=== PATIENT | female | born 1965 | race Caucasian/White ===

== ENCOUNTER 2020-10-04 07:52 | Emergency (ER) | payer BC, SELFPAY ==
[2020-10-04] VITALS (12 sets, daily range): BP systolic 149–177; BP diastolic 67–97; PULSE 66–79; RESP 14–31; TEMP 36.7; O2SAT 92–99
--- NOTE | 2020-10-04 08:07 | DI.RAD.S_ITS ---
PROCEDURE: XR TOE RT MIN 2V INDICATIONS: hit right 5th toe, bruising at base w/ pain TECHNIQUE: 3 views of the 5th toe(s) acquired. COMPARISON: None. FINDINGS: Bones: Oblique fracture through the 5th digit proximal phalanx. There is no significant displacement. There is possible intra-articular extension. No dislocations. No suspicious bony lesions. Soft tissues: No suspicious soft tissue densities. IMPRESSION: Oblique fracture through the 5th digit proximal phalanx. Dictated by: Luis Martínez M.D. on 10/04/2020 at 8:53 Approved by: Luis Martínez M.D. on 10/04/2020 at 9:08
--- NOTE | 2020-10-04 08:07 | DI.RAD.S_ITS ---
PROCEDURE: XR CHEST 1V INDICATIONS: chest pain TECHNIQUE: One view of the chest was acquired. COMPARISON: None. FINDINGS: Surgical changes and devices: None. Lungs and pleura: Lungs are clear. No pleural effusions or pneumothorax. Lungs are hyperexpanded. Mediastinum: Mediastinal contours appear normal. Heart size is normal. Bones and chest wall: No suspicious bony lesions. Overlying soft tissues appear unremarkable. IMPRESSION: No acute pulmonary process. Dictated by: Ni Moreira M.D. on 10/04/2020 at 8:33 Approved by: Ni Moreira M.D. on 10/04/2020 at 8:41
--- NOTE | 2020-10-04 08:09 | ED.CHESTPAIN ---
HPI - Chest Pain General Chief Complaint: Chest Pain Stated Complaint: chest pain since yesterday, worse this AM Time Seen by Provider: 10/04/20 08:08 Source: patient Mode of arrival: Ambulatory Limitations: no limitations History of Present Illness HPI narrative: This is a 55-year-old female who comes emergency department with complaint of chest pain. Patient states she has had costochondritis in the past. That has been quite painful but states this feels different today. She describes it is substernal little bit to the right and also epigastric region. Was shooting pains yesterday and then a tightness last night with some pressure that was present throughout the entire night. Patient woke up this morning at 5:00 a.m. the like is a little bit worse and radiating towards her back. Patient denies any fevers or chills, no cold cough or congestion. She has had some mild nausea but no vomiting. No diaphoresis. No shortness of breath, no pleuritic chest pain. Swelling in her extremities. No issues with bowel movements or urination. Nothing seems to exacerbate it. She states it has been steady, at this time it is a 1/2 out of 10. She does have a history of migraines which she takes amitriptyline for, Mepron well as well as uses an estradiol patch. She had a total hysterectomy, rectal and cystocele repair with mesh as well as hernia repair with mesh in the past. She has allergies which are dystonic reactions to Reglan and Compazine. No tobacco, 1 alcoholic drink weekly, CBD oil but no other illicit. Primary care is Dr. Thomas in [facility]. Patient states a couple months ago she was told that there was a change on her EKG but she is not sure what it was from a prior. Patient also notes that she has some pain, bruising and pain over the 5th digit of her right toe after jamming her foot last against a piece of furniture. She states the pain has not improved and is still uncomfortable to ambulate. No new numbness or tingling. Related Data Home Medications Medication Instructions Recorded Confirmed amitriptyline 25 mg tablet 25 mg PO BEDTIME 10/04/20 10/04/20 estradiol 0.05 mg/24 hr semiweekly 1 patch TRANSDERMAL 2XW 07/12/21 07/12/21 transdermal patch omeprazole 20 mg capsule,delayed 20 mg PO QAM 10/04/20 10/04/20 release rizatriptan 10 mg disintegrating 10 mg PO ONCE PRN 10/04/20 10/04/20 tablet (Maxalt-E [employer]) Allergies Allergy/AdvReac Type Severity Reaction Status Date / Time No Known Drug Allergies Allergy Verified 10/04/20 08:19 Review of Systems Review of Systems ROS Unobtainable: All systems reviewed & are unremarkable except as noted in HPI and below Patient History Medical History (Updated 10/04/20 @ 10:00 by Karly Mckeon DO) Migraine Social History Smoking Status: Never smoker Exam Narrative Exam Narrative: GENERAL: Alert and oriented x three, female in mild distress. HEENT: Head normocephalic, atraumatic, EOMI, pupils reactive, face symmetric, moist mucous membranes NECK: Supple, full range of motion CARDIOVASCULAR: Regular rate and rhythm without murmurs, rubs or gallops. No swelling bilateral lower extremities. No JVD. RESPIRATORY: Breath sounds equal bilaterally, no wheezes rales or rhonchi. No tachypnea accessory muscle use. ABDOMEN: Soft, nontender. Normoactive bowel sounds all 4 quadrants. No guarding or rebound, rigidity, no mass : No CVA tenderness EXTREMITIES: Normal range of motion, no clubbing. Patient has ecchymosis over the 5th distal metatarsal and digit as well as mild ecchymosis over the 4th digit of her right foot. She has tenderness over the proximal interphalangeal joint. Increased pain with movement. Patient does not have any obvious deformity. Cap refill is less than 2 seconds in all 5 toes with 2+ dorsalis pedis and normal sensation throughout. Neurovascularly intact NEUROLOGICAL: Cranial nerves II through XII grossly intact. Moving all extremities SKIN: Warm, dry, no petechiae, no rashes or lesions, otherwise noted above. Initial Vital Signs Initial Vital Signs: Vital Signs Temperature 98.1 F 10/04/20 07:55 Pulse Rate 72 10/04/20 07:55 Respiratory Rate 14 10/04/20 07:55 Blood Pressure 177/81 H 10/04/20 07:55 Pulse Oximetry 99 10/04/20 07:55 Scores HEART Score Heart Score history: Slightly Suspicious Heart Score EKG: Normal Heart Score Age: 45-64 years old Heart Score risk factors: No known risk factors Heart Score troponin: < or = to normal limit Heart Score Total: 1 PERC Score Age greater than or equal to 50 years: Yes Heart rate greater than or equal to 100 bpm: No Room Air O2 Sat less than 95%: No Unilateral leg swelling: No Recent trauma or surgery: No (Mild trauma to toe.) Hemoptysis: No Prior PE or DVT: No Hormone Use: Yes Total PERC Score: 2 Course Orders Ordered: Discontinued Medications Aspirin (Aspirin 81 Mg Chew Tab) 324 mg PO NOW ONE Stop: 10/04/20 08:08 Last Admin: 10/04/20 09:47 Dose: 324 mg Documented by: ALMA Vital Signs Vital signs: Vital Signs - 8 hr 10/04/20 11:00 10/04/20 11:51 Pulse Rate 67 73 Respiratory Rate 16 18 Blood Pressure 153/70 H 153/70 H Pulse Oximetry 99 99 MDM - Chest Pain Lab Data Result diagrams: 10/04/20 08:10 10/04/20 08:10 Labs: Lab Results 10/04/20 10/04/20 10/04/20 Range/Units 08:10 08:10 08:10 WBC 6.4 (4.5-11.0) X10^3/uL RBC 5.02 (4.0-5.2) X10^6/uL Hgb 15.0 (12.0-16.0) g/dL Hct 43.7 (36-46) % MCV 87.0 (80-100) fL MCH 29.9 (26-34) PG MCHC 34.3 (30-36) % RDW 12.1 (11.6-14.8) % Plt Count 283 (150-400) X10^3/uL Neut % (Auto) 64.9 (50-75) % Lymph % (Auto) 25.2 (25-40) % [place]ackelford % (Auto) 7.4 (3-14) % Eos % (Auto) 1.7 L (2-4) % Baso % (Auto) 0.8 (0-2) % Neut # (Auto) 4100 (2822-0187) /uL Lymph # (Auto) 1600 (6529-6950) /uL [place] # (Auto) 500 (0-900) /uL Eos # (Auto) 100 (0-450) /uL Baso # (Auto) 0 (0-100) /uL D-Dimer (<230) ng/mL Sodium 137 (137-145) mmol/L Potassium 3.8 (3.4-5.1) mmol/L Chloride 103 (98-107) mmol/L Carbon Dioxide 27 (22-32) mmol/L BUN 14 (7-17) mg/dL Creatinine 0.57 (0.52-1.04) mg/dL Estimated GFR > 60.0 (>60) mL/min BUN/Creatinine Ratio 24.6 H (6-22) Glucose 108 H (70-100) mg/dL Calcium 9.9 (8.4-10.2) mg/dL Magnesium 1.9 (1.6-2.3) mg/dL Total Bilirubin 2.2 H (0.2-1.3) mg/dL AST 27 (14-36) IU/L ALT 21 (<35) IU/L Alkaline Phosphatase 75 (38-126) U/L Total Creatine Kinase 49 (30-135) U/L CK-MB (CK-2) TNP CK-MB (CK-2) Rel Index TNP Troponin I < 0.012 (0.01-0.034) ng/mL Total Protein 7.6 (6.3-8.2) g/dL Albumin 4.5 (3.5-5.0) g/dL Globulin 3.1 (1.7-4.1) g/dL Albumin/Globulin Ratio 1.5 (1.0-2.8) Lipase 159 (23-300) U/L TSH 3.14 (0.47-4.68) uIU/mL 10/04/20 Range/Units 08:40 WBC (4.5-11.0) X10^3/uL RBC (4.0-5.2) X10^6/uL Hgb (12.0-16.0) g/dL Hct (36-46) % MCV (80-100) fL MCH (26-34) PG MCHC (30-36) % RDW (11.6-14.8) % Plt Count (150-400) X10^3/uL Neut % (Auto) (50-75) % Lymph % (Auto) (25-40) % Shackelford % (Auto) (3-14) % Eos % (Auto) (2-4) % Baso % (Auto) (0-2) % Neut # (Auto) (4946-0456) /uL Lymph # (Auto) (9838-4983) /uL Shackelford # (Auto) (0-900) /uL Eos # (Auto) (0-450) /uL Baso # (Auto) (0-100) /uL D-Dimer 205 (<230) ng/mL Sodium (137-145) mmol/L Potassium (3.4-5.1) mmol/L Chloride (98-107) mmol/L Carbon Dioxide (22-32) mmol/L BUN (7-17) mg/dL Creatinine (0.52-1.04) mg/dL Estimated GFR (>60) mL/min BUN/Creatinine Ratio (6-22) Glucose (70-100) mg/dL Calcium (8.4-10.2) mg/dL Magnesium (1.6-2.3) mg/dL Total Bilirubin (0.2-1.3) mg/dL AST (14-36) IU/L ALT (<35) IU/L Alkaline Phosphatase (38-126) U/L Total Creatine Kinase (30-135) U/L CK-MB (CK-2) CK-MB (CK-2) Rel Index Troponin I (0.01-0.034) ng/mL Total Protein (6.3-8.2) g/dL Albumin (3.5-5.0) g/dL Globulin (1.7-4.1) g/dL Albumin/Globulin Ratio (1.0-2.8) Lipase (23-300) U/L TSH (0.47-4.68) uIU/mL Imaging Data Chest x-ray: Radiologist's Impression: Mahsa Molinasarita Whiteside 55 F 1965 [address] [id number] ReportSigned Patient: Rosa Molina RMR#: [id number]: 1965Acct:[id number]/Sex: 55 / FDate of Service: 10/04/20Loc: EDAccession Number: [id number] Procedure: XR chest 1V Ordering Provider: Karly Mckeon D.O. PROCEDURE: XR CHEST 1V INDICATIONS: chest pain TECHNIQUE: One view of the chest was acquired. COMPARISON: None. FINDINGS: Surgical changes and devices: None. Lungs and pleura: Lungs are clear. No pleural effusions or pneumothorax. Lungs are hyperexpanded. Mediastinum: Mediastinal contours appear normal. Heart size is normal. Bones and chest wall: No suspicious bony lesions. Overlying soft tissues appear unremarkable. IMPRESSION: No acute pulmonary process. Dictated by: Ni Moreira M.D. on 10/04/2020 at 8:33 Approved by: Ni Moreira M.D. on 10/04/2020 at 8:41 Extremity x-ray #1: Radiologist's Impression: [address] [id number] ReportSigned Patient: Rosa Molina RMR#: [id number]: 1965Acct:[id number]/Sex: 55 / FDate of Service: 10/04/20Loc: EDAccession Number: [id number] Procedure: XR toe RT min 2V Ordering Provider: Karly Mckeon D.O. PROCEDURE: XR TOE RT MIN 2V INDICATIONS: hit right 5th toe, bruising at base w/ pain TECHNIQUE: 3 views of the 5th toe(s) acquired. COMPARISON: None. FINDINGS: Bones: Oblique fracture through the 5th digit proximal phalanx. There is no significant displacement. There is possible intra-articular extension. No dislocations. No suspicious bony lesions. Soft tissues: No suspicious soft tissue densities. IMPRESSION: Oblique fracture through the 5th digit proximal phalanx. Dictated by: Luis Martínez M.D. on 10/04/2020 at 8:53 Approved by: Luis Martínez M.D. on 10/04/2020 at 9:08 US - abdomen: Radiologist's Impression: JesseRosa 55 F [address] [id number] ReportSigned Patient: Rosa Molina RMR#: [id number]: 1965Acct:[id number]/Sex: 55 / FDate of Service: 10/04/20Loc: EDAccession Number: [id number] Procedure: US abdomen limited Ordering Provider: Karly Mckeon D.O. PROCEDURE: US ABDOMEN LIMITED INDICATIONS: EPIGASTRIC PAIN; ELEVATED BILIRUBIN TECHNIQUE: Real-time focused scanning was performed of the abdomen, with image documentation. COMPARISON: None. FINDINGS: Liver is normal in size and homogeneous in echotexture. Gallbladder is sonographically normal. No gallstones. No gallbladder wall thickening. Gallbladder wall measures 1.0 millimeters. No pericholecystic fluid. No sonographic Wayne sign. Biliary tree is nondilated. Common bile duct measures 3.8 millimeters. Pancreas is sonographically normal. IMPRESSION: Normal examination without sonographic evidence of cholelithiasis or cholecystitis. If there is continued clinical concern for cholecystitis, a nuclear medicine HIDA scan should be considered for further evaluation. Dictated by: Ally Avalos MD, PhD on 10/04/2020 at 10:46 Approved by: Ally Avalos MD, PhD on 10/04/2020 at 10:47 ECG Data Attestation: I personally reviewed and interpreted this ECG as follows: Prior ECG tracings: available for review Interpretation: Sinus rhythm rate of 60 KS 144 QRS is 74 and QTC 441. No acute ST elevation depression appreciated. Patient prior EKG available from patient's primary care from 07/06/2020 which appears similar to today's. MDM Narrative Medical decision making narrative: 55-year-old female with chest pain last night continued through this morning. Patient has had costochondritis but states feels different. It is 1/2 out of 10. Patient also notes that she has some bruising and hurt on . Patient does have a proximal phalanx fracture and was set up with ortho shoe, referral orthopedic surgery although we discussed she could follow with her primary care as an option as well. Patient was nontender on her abdominal but did have an elevated bilirubin. Abdominal ultrasound was ordered and does not show any acute changes. All questions answered. Patient feels comfortable returning home at this time and plan for follow-up regarding her bilirubin. Discharge Plan Departure Patient Disposition: Home Clinical Impression: Chest pain Closed fracture of toe Qualifiers: Encounter type: initial encounter Phalanx: proximal Fracture alignment: nondisplaced Instructions: DI for Foot Fracture Activity Restrictions/Additional Instructions: Follow-up with your physician in the next 1-2 weeks for recheck. Your x-ray does show a fracture of the proximal 5th phalanx of your foot. You may use Tylenol and/or ibuprofen as needed for pain. Wear a hard shoe or ortho shoe to properly splint your foot. You may weight bear as tolerated. Your labs show an elevated bilirubin. Ultrasound of your upper abdomen shows Splint Care: Keep splint clean and dry. Elevated affected body part to decrease swelling. OK to use ice pack on the affected body part. Use for 15-20 minutes each time, for 5-6x per day. If you develop worsening pain, numbness, tingling, discoloration of the affected body part, wear ortho shoe, and either see your doctor for an urgent re-assessment, or return to the Emergency Department. Return to the Emergency Department for any new or worsening symptoms. Prescriptions: No Action omeprazole 20 mg capsule,delayed release(DR/EC) 20 mg PO QAM RF: 0 estradiol 0.05 mg/24 hr patch semiweekly 1 patch transdermal 2XW RF: 0 amitriptyline 25 mg tablet 25 mg PO BEDTIME RF: 0 rizatriptan [Maxalt-E [employer]] 10 mg tablet,disintegrating 10 mg PO ONCE PRN (Reason: Migraine Headache) RF: 0 Referrals: Niall Tse MD [Physician] -
[2020-10-04 08:21] LABS: Add Manual Diff / Slide Review NO; Basophils Absolute Auto 0 /uL (0-100); Basophils Percent Auto 0.8 % (0-2); Eosinophils Absolute Auto 100 /uL (0-450); Eosinophils Percent Auto 1.7 % (2-4); Hematocrit 43.7 % (36-46); Lymphocytes Absolute Auto 1600 /uL (1100-4500); Lymphocytes Percent Auto 25.2 % (25-40); Mean Corpuscular HGB Conc 34.3 % (30-36); Mean Corpuscular Hemoglobin 29.9 PG (26-34); Monocytes Absolute Auto 500 /uL (0-900); Monocytes Percent Auto 7.4 % (3-14); Neutrophils Absolute Auto 4100 /uL (1500-7000); Neutrophils Percent Auto 64.9 % (50-75); Platelet Count 283 X10^3/uL (150-400); Red Blood Cell Count 5.02 X10^6/uL (4.0-5.2); Red Cell Distribution Width 12.1 % (11.6-14.8); White Blood Cell Count 6.4 X10^3/uL (4.5-11.0)
[2020-10-04 08:28] LABS: Alanine Aminotransferase 21 IU/L (<35); Albumin 4.5 g/dL (3.5-5.0); Albumin Globulin Ratio 1.5 (1.0-2.8); Alkaline Phosphatase 75 U/L (38-126); Aspartate Aminotransferase 27 IU/L (14-36); BUN Creatinine Ratio 24.6 (6-22); Bilirubin Total 2.2 mg/dL (0.2-1.3); Blood Urea Nitrogen 14 mg/dL (7-17); Calcium 9.9 mg/dL (8.4-10.2); Carbon Dioxide 27 mmol/L (22-32); Chloride 103 mmol/L (98-107); Creatine Kinase 49 U/L (30-135); Estimated Glomerular Filt Rate > 60.0 mL/min (>60); Globulin 3.1 g/dL (1.7-4.1); Glucose 108 mg/dL (70-100); HEMOLYSIS 16 (0-50); Lipase 159 U/L (23-300); Magnesium 1.9 mg/dL (1.6-2.3); Potassium 3.8 mmol/L (3.4-5.1); Sodium 137 mmol/L (137-145); Total Protein 7.6 g/dL (6.3-8.2)
[2020-10-04 08:39] LABS: Troponin I < 0.012 ng/mL (0.01-0.034)
[2020-10-04 09:01] LABS: TSH w/ Reflex to FT4 3.14 uIU/mL (0.47-4.68)
[2020-10-04 09:06] LABS: D Dimer 205 ng/mL (<230)
--- NOTE | 2020-10-04 09:32 | DI.US.S_ITS ---
PROCEDURE: US ABDOMEN LIMITED INDICATIONS: EPIGASTRIC PAIN; ELEVATED BILIRUBIN TECHNIQUE: Real-time focused scanning was performed of the abdomen, with image documentation. COMPARISON: None. FINDINGS: Liver is normal in size and homogeneous in echotexture. Gallbladder is sonographically normal. No gallstones. No gallbladder wall thickening. Gallbladder wall measures 1.0 millimeters. No pericholecystic fluid. No sonographic Wayne sign. Biliary tree is nondilated. Common bile duct measures 3.8 millimeters. Pancreas is sonographically normal. IMPRESSION: Normal examination without sonographic evidence of cholelithiasis or cholecystitis. If there is continued clinical concern for cholecystitis, a nuclear medicine HIDA scan should be considered for further evaluation. Dictated by: Ally Avalos MD, PhD on 10/04/2020 at 10:46 Approved by: Ally Avalos MD, PhD on 10/04/2020 at 10:47
[2020-10-04] MEDS: ASPIRIN 81 MG CHEW TAB 324 MG PO (09:47)
== END 2020-10-04 11:51 | disposition home or self-care (01) ==
PROVIDERS: Emergency Provider Emergency Medicine
DX: R07.9 Chest pain, unspecified (principal); S92.514A Nondisplaced fracture of proximal phalanx of right lesser toe(s), initial encounter for closed fracture; R10.13 Epigastric pain; R11.0 Nausea; R79.89 Other specified abnormal findings of blood chemistry; W22.03XA Walked into furniture, initial encounter
CPT/HCPCS: 36415; 71045; 73660; 76705; 80053; 82550; 83690; 83735; 84443; 84484; 85025; 85379; 93005; 93010; 99284

== ENCOUNTER → 2022-01-02 09:51 | Outpatient (CLI) | payer BC, SELFPAY ==
--- NOTE | 2022-01-02 | DI.US.S_ITS ---
PROCEDURE: US ABDOMEN COMPLETE INDICATIONS: ABDOMINAL PAIN TECHNIQUE: Real-time scanning was performed of the abdominal and retroperitoneal organs, with image documentation. COMPARISON: Outside Film, CT, CT ABDOMEN PELVIS WITHOUT CONTRAST, 08/01/2021, 13:30. [facility], US, US ABDOMEN LIMITED, 10/04/2020, 10:28. FINDINGS: Liver: Liver length of 11.3 centimeters. The liver is echogenic. At the posterior right lobe of the liver, there is an ill-defined region of relative hypoechogenicity which measures 5.8 x 3.9 x 3.4 centimeters. The main portal vein is patent with antegrade flow. Gallbladder: No stones, wall thickening, or sonographic Wayne sign. Biliary ducts: Intrahepatic bile ducts are non-dilated. Extrahepatic bile duct caliber measures 4 mm. Normal is 6-7 mm or less in diameter, or 10 mm or less post-cholecystectomy. Pancreas: Visualized portions of the pancreas are sonographically normal. Spleen: Spleen is normal in size and homogeneous in echotexture. Kidneys: Kidneys are normal in size. Right kidney measures 11.4 cm long; left kidney measures 10.9 cm long. No hydronephrosis or nephrolithiasis. Possible solid mass versus prominent parenchymal lobulation at the mid kidney measuring up to 2.5 centimeters. At the mid-inferior kidney, a 6 millimeter echogenic structure is present, potential angiomyolipoma. Aorta: Visualized aorta is normal in caliber at less than 3 cm. Iliacs: Proximal common iliac arteries are normal in caliber at less than 2.5 cm. IVC: Intrahepatic inferior vena cava is patent. Miscellaneous: No free abdominal fluid. IMPRESSION: 1. No cholelithiasis or evidence of acute cholecystitis. 2. The liver is echogenic, a nonspecific finding commonly seen in the setting of steatosis. 3. Ill-defined region of relative hypo-echogenicity at the posterior right lobe of the liver is nonspecific. It could represent a region of fatty sparing or a hepatic mass. 4. The left kidney is lobular in appearance. At the mid kidney, there is a possible prominent lobulation versus solid mass. 5. MRI of the abdomen with and without contrast, liver protocol, is recommended for further evaluation of above findings. Dictated by: Eliot Velásquez M.D. on 01/02/2022 at 14:05 Approved by: Eliot Velásquez M.D. on 01/02/2022 at 14:15
== END ==
PROVIDERS: Referring Provider Internal Medicine Gastroenterology; Visit Provider Internal Medicine Gastroenterology
DX: R10.9 Unspecified abdominal pain (principal)
CPT/HCPCS: 76700

== ENCOUNTER → 2022-02-06 11:07 | Outpatient (CLI) | payer BC, SELFPAY ==
--- NOTE | 2022-02-06 | DI.MRI.S_ITS ---
PROCEDURE: MR ABDOMEN WO/W CON INDICATIONS: other specified diseases of liver TECHNIQUE: Coronal HASTE, axial 2D FLASH in- and [id number]; axial breath-hold T2 FSE. Dynamic axial VIBE during the administration of contrast; post-contrast coronal VIBE or 2D FLASH with fat saturation from the hepatic dome to the iliac crests. Optional diffusion weighted imaging and ADC may be performed. COMPARISON: [facility], US, US ABDOMEN COMPLETE, 01/02/2022, 10:11. FINDINGS: Image quality: Excellent. Lung bases: 3.1 x 2.1 cm homogeneous, unilocular, pleural-based mass with T1 and T2 hyperintensity in the right lateral lung. No enhancement postcontrast. No pleural effusions. Normal heart size without pericardial effusion. Solid organs: The liver is normal in size and signal with a smooth margin. There is a subcentimeter cyst in the right hepatic lobe segment eight. No lesion to correspond to the ultrasound finding (presumably artifactual). Normal enhancement postcontrast. The gallbladder is partially decompressed. No wall thickening or visible stones. No intra or extrahepatic biliary dilatation. The pancreas is normal. No ductal dilatation. Spleen size is normal. A 1.3 cm splenule is seen at the caudal tip. No adrenal masses. Normal size kidneys with symmetric enhancement. Nodes and vessels: No retroperitoneal or mesenteric adenopathy by size criteria. Aorta and inferior vena cava are normal in size. Bowel and peritoneum: Unenhanced bowel loops are normal in caliber. No free fluid. Bones and soft tissues: No ventral hernias. Bone marrow is normal in overall signal. IMPRESSION: 1. Normal liver without suspicious mass as suggested by recent ultrasound. 2. 3.1 cm benign-appearing, pleural-based fatty mass in the right lateral lung suggestive of a hamartoma or lipoma. Consider contrast-enhanced chest CT for full characterization. Dictated by: Bria Garcia M.D. on 02/06/2022 at 14:53 Approved by: Bria Garcia M.D. on 02/06/2022 at 15:04
== END ==
PROVIDERS: PCP Student in an Organized Health Care Education/Training Program; Referring Provider Internal Medicine Gastroenterology; Visit Provider Internal Medicine Gastroenterology
DX: K76.89 Other specified diseases of liver (principal)
CPT/HCPCS: 74183; A9579

== ENCOUNTER → 2022-02-24 11:45 | Outpatient (CLI) | payer BC, SELFPAY ==
[2022-02-24 13:02] LABS: COVID19 -Nasal RAPID Negative (Negative)
== END ==
PROVIDERS: PCP Student in an Organized Health Care Education/Training Program; Visit Provider Surgery
DX: Z20.822 Contact with and (suspected) exposure to COVID-19 (principal); Z01.812 Encounter for preprocedural laboratory examination
CPT/HCPCS: 87635; C9803

== ENCOUNTER 2022-02-27 09:51 | Day surgery (SDC) | payer BC, SELFPAY ==
[2022-02-27] MEDS: LACTATED RINGERS 1,000 ML 42 ML IV (10:03)
[2022-02-27 10:19] VITALS: BP 152/87; PULSE 82; RESP 16; TEMP 36.5; O2SAT 97; BMI 24.0
--- NOTE | 2022-02-27 11:05 | P.HP_ITS ---
History of Present Illness History of Present Illness Date Patient Seen: 02/27/22 Time Patient Seen: 11:05 Chief complaint: DX COLONOSCOPY Narrative: I reviewed my recent office note from November. No further rectal pain. She is using fiber daily and MiraLax every other day. She believes the fibers contributing to some gas. Patient History Medical History Migraine Family & Social History Social History: household members spouse Tobacco & Substance use: Smoking Status Former smoker alcohol intake current alcohol intake frequency 0-2 drinks per day Substance Use Type does not use Meds Home Medications and Allergies Home Medications Medication Instructions Recorded Confirmed Type amitriptyline 25 mg tablet 25 mg PO BEDTIME 10/04/20 02/27/22 History estradiol 0.05 mg/24 hr semiweekly 1 patch transdermal 2XW 10/04/20 02/27/22 History transdermal patch omeprazole 20 mg capsule,delayed 20 mg PO QAM 10/04/20 02/27/22 History release rizatriptan 10 mg disintegrating 10 mg PO ONCE PRN Migraine Headache 10/04/20 02/27/22 History tablet (Maxalt-[employer]) albuterol 90 mcg/actuation aerosol 90 mcg inhalation 1-2XD PRN 02/27/22 02/27/22 History inhaler Shortness Of Breath Allergies Allergy/AdvReac Type Severity Reaction Status Date / Time metoclopramide [From Reglan] Allergy Mild Agitated Verified 02/27/22 10:13 prochlorperazine Allergy Mild Agitated Verified 02/27/22 10:12 [From Compazine] Review of Systems Review of Systems ROS: Yes All systems reviewed with the patient and are negative except as otherwise documented Exam Vital Signs (past 8 hours): - 02/27/22 10:19 Temperature 97.7 F Pulse Rate 82 Respiratory Rate 16 Blood Pressure 152/87 H Pulse Oximetry 97 Oxygen Delivery Method Room Air Oxygen Delivery Method Room Air Const General: cooperative HENMT Head: normal to inspection Eyes General: appearance normal, both eyes and all related structures Neck Neck: normal visual inspection Chest Chest: normal inspection of the chest Resp Effort & Inspection: normal respiratory effort Cardio Rate: regular rate GI Inspection: normal to inspection Skin General: no rashes or lesions noted Neuro General: patient alert and patient awake Extrem General: normal to inspection and no pedal edema Psych Appearance: grossly normal Assessment & Plan Assessment & Plan narrative: 57-year-old female with a personal history of colon polyps. Rectal pain is improved. Bowel habits have improved as well with fiber MiraLax. Updated colonoscopy is pursued today. Time Spent With Patient Critical Care time: I spent a total of [] minutes of critical care time on this patient's care today; this time is exclusive of procedural time.
--- NOTE | 2022-02-27 12:07 | PM.OP.COLON ---
Operative Date/Time/Diagnoses Date of procedure: 02/27/22 Time of procedure: 12:07 Pre-op diagnosis: Rectal pain, abdominal pain, constipation, personal history of colon polyps. Post-op diagnosis: same Procedure & Clinicians Study performed: Colonoscopy Same procedure as scheduled: Yes Indications: Rectal pain, abdominal pain, constipation, personal history of colon polyps. Surgeon: Jose A Mayes Procedure Notes SCOAP/Timeout: Done Procedure in detail: After the risks and benefits were explained, written and verbal informed consent was obtained. The patient was brought into the procedure room and placed into the left lateral decubitus position. Please see nurse mortgage accounting clerk notes for sedation details. Digital rectal examination was accomplished. The scope was introduced into the patient and advanced under direct visualization to the cecum as identified by the appendiceal orifice and ileocecal valve. The scope was slowly withdrawn to carefully examine the mucosa for any defects or lesions. Comprehensive imaging was accomplished throughout the rectum including the dentate line. The colon was decompressed, the scope was then removed from the patient who tolerated the procedure well. Pediatric colonoscope Bowel prep adequate Scope withdrawal time: 8 minutes Sedation minutes: 17 Specimen(s): none sent Complications: none Impression: The patient had a fairly tortuous sigmoid with extensive diverticulosis. No significant polyps mass lesions or inflammatory features identified throughout. Grade 2 internal hemorrhoids were noted. The terminal ileum was interrogated and appeared normal. Endoscopic diagnosis 1. Grade 2 hemorrhoids 2. Diverticulosis Post-procedure Plan for aftercare: 1. Continue fiber based bowel regimen. Perhaps swap out the Metamucil for Citrucel. 2. Repeat colonoscopy 7 years Disposition: PACU
[2022-02-27 12:10] VITALS: BP 120/60; PULSE 78; RESP 16; TEMP 37.1; O2SAT 100
[2022-02-27 12:15] VITALS: BP 124/84; BP 152/70; PULSE 69; PULSE 72; RESP 12; RESP 16; O2SAT 100; O2SAT 99
[2022-02-27 12:25] VITALS: BP 148/64; PULSE 72; RESP 16; O2SAT 100
[2022-02-27 12:42] VITALS: BP 145/84; PULSE 73; RESP 16; TEMP 36.3; O2SAT 98
== END 2022-02-27 13:03 | disposition home or self-care (01) ==
PROVIDERS: PCP Student in an Organized Health Care Education/Training Program; Referring Provider Internal Medicine Gastroenterology; Visit Provider Internal Medicine Gastroenterology
PROC: 0DJD8ZZ Inspection of Lower Intestinal Tract, Via Natural or Artificial Opening Endoscopic (ICD-10-PCS; CPT 45378; principal; 2022-02-27 11:00)
DX: K62.89 Other specified diseases of anus and rectum (principal); R10.9 Unspecified abdominal pain; K59.00 Constipation, unspecified; Z86.010 Personal history of colon polyps; K64.1 Second degree hemorrhoids; K57.30 Diverticulosis of large intestine without perforation or abscess without bleeding
CPT/HCPCS: 45378; J2704

== ENCOUNTER 2022-06-28 22:14 | Observation (INO) | payer BC, SELFPAY ==
[2022-06-28 22:18] VITALS: BP 178/77; PULSE 76; RESP 20; TEMP 36.6; O2SAT 97; BMI 22.6
--- NOTE | 2022-06-28 22:49 | DI.CT.S_ITS ---
PROCEDURE: CT ABDOMEN PELVIS W CON INDICATIONS: severe pain left side, recent surgery TECHNIQUE: After the administration of IV contrast, axial sections were acquired from the lung bases to the pubic symphysis. Coronal and sagittal reformats were performed. For radiation dose reduction, the following was used: automated exposure control, adjustment of mA and/or kV according to patient size. COMPARISON: Outside Film, CT, CT ABDOMEN PELVIS WITHOUT CONTRAST, 08/01/2021, 13:30. FINDINGS: Image quality: Excellent. Lung bases: Unremarkable. Heart: Heart is normal in size. ABDOMEN: Liver: There is hypoattenuation of the liver suggestive of fatty infiltration. The Gallbladder: Within normal limits without calcified gallstones. Biliary ducts: No biliary ductal dilatation. Pancreas: Unremarkable. Spleen: Normal in size. Adrenal Glands: There is mild thickening of the left adrenal gland redemonstrated. Kidneys and Ureters: No hydronephrosis. There is a 0.2 cm nonobstructing stone within the left kidney. Stomach and Bowel: Stomach, small bowel loops, and colon are normal in caliber and wall thickness. No pericecal inflammatory changes to suggest appendicitis. There is colonic diverticulosis without acute diverticulitis. Peritoneum: No abnormal intraperitoneal fluid. No free air. Ventral Wall: No hernia. Abdominal Nodes: No retroperitoneal or mesenteric adenopathy by size criteria. Vessels: Aorta and inferior vena cava are normal in size. PELVIS: Pelvic Organs: The uterus is surgically absent. Bladder: Unremarkable. Pelvic Nodes: No enlarged lymph nodes. Miscellaneous: No inguinal hernias are seen. Bones: Visualized osseous structures demonstrate no suspicious focal lesions. IMPRESSION: 1. No definite acute intra-abdominal abnormality. Specifically, no evidence of abscess. 3. Colonic diverticulosis without acute diverticulitis. 3. Left nephrolithiasis without obstructive uropathy. Dictated by: Bolivar Metz M.D. on 06/28/2022 at 23:41 Approved by: Bolivar Metz M.D. on 06/28/2022 at 23:45
[2022-06-28 22:54] LABS: Add Manual Diff / Slide Review NO; Basophils Absolute Auto 100 /uL (0-100); Basophils Percent Auto 0.6 % (0-2); Eosinophils Absolute Auto 200 /uL (0-450); Eosinophils Percent Auto 1.2 % (2-4); Hematocrit 42.9 % (36-46); Hemoglobin 14.8 g/dL (12.0-16.0); Lymphocytes Absolute Auto 2100 /uL (1100-4500); Lymphocytes Percent Auto 14.9 % (25-40); Mean Corpuscular HGB Conc 34.4 % (30-36); Mean Corpuscular Hemoglobin 29.5 PG (26-34); Mean Corpuscular Volume 85.6 fL (80-100); Monocytes Absolute Auto 700 /uL (0-900); Monocytes Percent Auto 4.7 % (3-14); Neutrophils Absolute Auto 11000 /uL (1500-7000); Neutrophils Percent Auto 78.6 % (50-75); Platelet Count 389 X10^3/uL (150-400); Red Blood Cell Count 5.01 X10^6/uL (4.0-5.2); Red Cell Distribution Width 12.4 % (11.6-14.8)
[2022-06-28] MEDS: SODIUM CHLORIDE 0.9% 1,000 ML 1000 ML IV (23:01)
[2022-06-28] MEDS: HYDROMORPHONE 0.5 MG INJ IV (23:01)
[2022-06-28 23:02] LABS: Alanine Aminotransferase 23 IU/L (<35); Albumin 4.4 g/dL (3.5-5.0); Albumin Globulin Ratio 1.5 (1.0-2.8); Alkaline Phosphatase 92 U/L (38-126); Aspartate Aminotransferase 20 IU/L (14-36); BUN Creatinine Ratio 24.1 (6-22); Bilirubin Total 1.2 mg/dL (0.2-1.3); Blood Urea Nitrogen 14 mg/dL (7-17); Calcium 9.4 mg/dL (8.4-10.2); Carbon Dioxide 24 mmol/L (22-32); Chloride 101 mmol/L (98-107); Estimated Glomerular Filt Rate > 60 mL/min (>60); Glucose 125 mg/dL (70-100); HEMOLYSIS < 15 (0-50); Lipase 191 U/L (23-300); Potassium 3.5 mmol/L (3.4-5.1); Sodium 135 mmol/L (137-145); Total Protein 7.4 g/dL (6.3-8.2)
[2022-06-28] MEDS: ONDANSETRON 4 MG/2 ML INJ IV (23:02)
[2022-06-28] MEDS: PANTOPRAZOLE 40 MG VIAL IV (23:02)
--- NOTE | 2022-06-28 23:15 | ED.ABDPAIN ---
HPI - Abdominal Pain General Chief Complaint: Abdominal Pain Stated Complaint: Abd pain nv Time Seen by Provider: 06/28/22 22:24 Source: patient Mode of arrival: Ambulatory History of Present Illness HPI narrative: 57F former smoker presents to the emergency department with her in the chief complaint of severe abdominal pain that has been worsening over the course of the day. She has severe epigastric pain that radiates down both sides into her back. She is been nauseated and had a few episodes of vomiting. The vomiting does not seem to affect her discomfort whatsoever. She has increasing pain with motion and improvement when she remains still. She denies dysuria, frequency or urgency. She denies constipation or diarrhea. Her last bowel movement was a few hours ago, she has no trouble passing gas. She had an abdominal surgery at an outside facility a few weeks ago to remove mesh that had been placed to help with the hernia. Related Data Home Medications Medication Instructions Recorded Confirmed amitriptyline 25 mg tablet 25 mg PO BEDTIME 10/04/20 02/27/22 estradiol 0.05 mg/24 hr semiweekly 1 patch transdermal 2XW 10/04/20 02/27/22 transdermal patch omeprazole 20 mg capsule,delayed 20 mg PO QAM 10/04/20 02/27/22 release rizatriptan 10 mg disintegrating 10 mg PO ONCE PRN Migraine Headache 10/04/20 02/27/22 tablet (Maxalt-[employer]ER [employer]ING) albuterol 90 mcg/actuation aerosol 90 mcg inhalation 1-2XD PRN 02/27/22 02/27/22 inhaler Shortness Of Breath Allergies Allergy/AdvReac Type Severity Reaction Status Date / Time metoclopramide [From Reglan] Allergy Mild Agitated Verified 06/28/22 22:24 prochlorperazine Allergy Mild Agitated Verified 06/28/22 22:24 [From Compazine] Opioids - Morphine Analogues AdvReac Mild Nausea Verified 06/28/22 22:24 Review of Systems Review of Systems Narrative: GENERAL: See HPI HEENT: Denies sinus pain, ear pain, sore throat, difficulty swallowing, dizziness. RESPIRATORY: Denies dyspnea, cough, wheezing, hemoptysis, sputum. CARDIOVASCULAR: Denies chest pain, palpitations, orthopnea, edema, GASTROINTESTINAL: See HPI : Denies dysuria, frequency, incontinence, hematuria, urinary retention. MUSCULOSKELETAL: denies weakness, joint pain, or bony pain SKIN: Denies rash, skin lesions, or other NEUROLOGIC: Denies weakness, headache, numbness, change in speech, confusion, seizures, incoordination. PSYCHIATRIC: No concerning psychosocial issues. 12 point review of systems is negative except for those stated above Patient History Medical History Migraine Social History household members: spouse Smoking Status: Former smoker alcohol intake: current Smoking Status: Former smoker alcohol intake frequency: 0-2 drinks per day Substance Use Type: does not use Exam Narrative Exam Narrative: GENERAL: [57] year old patient appears stated age. Well-developed patient, in obvious distress HEAD: Atraumatic. Normocephalic. EYES: Pupils equal round and reactive. Extraocular motions intact. No scleral icterus. No injection or drainage. ENT: Nose without bleeding, purulent drainage. Throat without erythema, tonsillar hypertrophy or exudate. Airway patent. NECK: Trachea midline. Non tender CARDIOVASCULAR: Regular rate and rhythm without murmurs, gallops, or rubs. RESPIRATORY: Clear to auscultation. Breath sounds equal bilaterally. No wheezes, rales, or rhonchi. GASTROINTESTINAL: Abdomen soft, n significantly tender in the epigastrium, bowel sounds present but decreased EXTREMITIES: No edema or joint tenderness. BACK: Nontender without deformity or crepitance. No flank tenderness. NEURO: AOx3. SKIN: No rash or erythema of visible areas Initial Vital Signs Initial Vital Signs: Vital Signs Temperature 98 F 06/28/22 22:18 Pulse Rate 76 06/28/22 22:18 Respiratory Rate 20 06/28/22 22:18 Blood Pressure 178/77 H 06/28/22 22:18 Pulse Oximetry 97 06/28/22 22:18 Oxygen Delivery Method Room Air 06/28/22 22:18 Course Orders Ordered: ED Orders 06/28/22 22:32 EKG-12 Lead Stat 06/28/22 22:35 Complete Blood Count AUTO DIFF Stat Comprehensive Metabolic Panel Stat Lipase Stat 06/28/22 22:49 CT abdomen pelvis w con Stat 06/29/22 01:27 US abdomen limited Stat 06/29/22 01:50 Lactate (Lactic Acid) Stat 06/29/22 02:00 CMP [Comprehensive Metabolic Panel] Stat Lactate (Lactic Acid) Stat Lipase Stat Ondansetron HCl (Ondansetron 4 Mg Odt) 4 mg PO NOW PRN PRN Reason: Nausea And Vomiting Ondansetron HCl (Ondansetron 4 Mg/2 Ml Inj) 4 mg IV NOW PRN PRN Reason: Nausea And Vomiting Discontinued Medications Hydromorphone HCl (Hydromorphone 0.5 Mg Inj) 0.5 mg IV NOW ONE Stop: 06/28/22 22:50 Last Admin: 06/28/22 23:01 Dose: 0.5 mg Documented By: THEO Sodium Chloride (Normal Saline 0.9%) 1,000 mls @ 1,000 mls/hr IV BOLUS ONE Stop: 06/28/22 23:48 Last Infusion: 06/29/22 01:44 Dose: 0 mls/hr Documented By: Infusion: 06/29/22 00:30 Dose: 1,000 mls/hr Documented By: Infusion: 06/28/22 23:20 Dose: 0 mls/hr Documented By: Admin: 06/28/22 23:01 Dose: 1,000 mls/hr Documented By: THEO Lorazepam (Lorazepam 2 Mg/Ml Inj) 0.5 mg IV NOW ONE Stop: 06/29/22 03:25 Ondansetron HCl (Ondansetron 4 Mg/2 Ml Inj) 4 mg IV NOW ONE Stop: 06/28/22 22:50 Last Admin: 06/28/22 23:02 Dose: 4 mg Documented By: THEO Pantoprazole Sodium (Pantoprazole 40 Mg Vial) 40 mg IV NOW ONE Stop: 06/28/22 22:50 Last Admin: 06/28/22 23:02 Dose: 40 mg Documented By: THEO Reevaluation(s) Reevaluation #1: Patient continuing to vomit, not tolerate orals and have pain despite the above therapies. Consultations Consultation #1: discussed with Dr. Garner. Vital Signs Vital signs: Vital Signs - 8 hr 06/28/22 22:18 06/29/22 00:24 06/29/22 00:26 Temperature 98 F Pulse Rate 76 70 Respiratory Rate 20 18 Blood Pressure 178/77 H 132/64 Pulse Oximetry 97 99 Oxygen Delivery Method Room Air 06/29/22 00:26 06/29/22 00:30 06/29/22 00:30 Temperature Pulse Rate 76 70 Respiratory Rate 12 Blood Pressure 135/63 Pulse Oximetry 97 96 Oxygen Delivery Method 06/29/22 01:00 06/29/22 01:00 06/29/22 01:30 Temperature Pulse Rate 84 Respiratory Rate Blood Pressure 128/79 134/61 Pulse Oximetry 98 Oxygen Delivery Method 06/29/22 01:30 06/29/22 02:00 06/29/22 02:00 Temperature Pulse Rate 72 80 Respiratory Rate 24 18 Blood Pressure 140/81 Pulse Oximetry 98 96 Oxygen Delivery Method MDM - Abdominal Pain Lab Data 06/28/22 22:35 06/29/22 02:00 Labs: Lab Results 06/28/22 06/28/22 06/28/22 Range/Units 22:35 22:35 22:35 WBC 14.0 H (4.5-11.0) X10^3/uL RBC 5.01 (4.0-5.2) X10^6/uL Hgb 14.8 (12.0-16.0) g/dL Hct 42.9 (36-46) % MCV 85.6 (80-100) fL MCH 29.5 (26-34) PG MCHC 34.4 (30-36) % RDW 12.4 (11.6-14.8) % Plt Count 389 (150-400) X10^3/uL Neut % (Auto) 78.6 H (50-75) % Lymph % (Auto) 14.9 L (25-40) % [place] % (Auto) 4.7 (3-14) % Eos % (Auto) 1.2 L (2-4) % Baso % (Auto) 0.6 (0-2) % Neut # (Auto) 20917 H (8366-0217) /uL Lymph # (Auto) 2100 (8917-5662) /uL [place] # (Auto) 700 (0-900) /uL Eos # (Auto) 200 (0-450) /uL Baso # (Auto) 100 (0-100) /uL Sodium 135 L (137-145) mmol/L Potassium 3.5 (3.4-5.1) mmol/L Chloride 101 (98-107) mmol/L Carbon Dioxide 24 (22-32) mmol/L BUN 14 (7-17) mg/dL Creatinine 0.58 (0.52-1.04) mg/dL Estimated GFR > 60 (>60) mL/min BUN/Creatinine Ratio 24.1 H (6-22) Glucose 125 H (70-100) mg/dL Lactate 2.7 H (0.7-2.1) mmol/L Calcium 9.4 (8.4-10.2) mg/dL Total Bilirubin 1.2 (0.2-1.3) mg/dL AST 20 (14-36) IU/L ALT 23 (<35) IU/L Alkaline Phosphatase 92 (38-126) U/L Total Protein 7.4 (6.3-8.2) g/dL Albumin 4.4 (3.5-5.0) g/dL Globulin 3.0 (1.7-4.1) g/dL Albumin/Globulin Ratio 1.5 (1.0-2.8) Lipase 191 (23-300) U/L 06/29/22 06/29/22 Range/Units 02:00 02:00 WBC (4.5-11.0) X10^3/uL RBC (4.0-5.2) X10^6/uL Hgb (12.0-16.0) g/dL Hct (36-46) % MCV (80-100) fL MCH (26-34) PG MCHC (30-36) % RDW (11.6-14.8) % Plt Count (150-400) X10^3/uL Neut % (Auto) (50-75) % Lymph % (Auto) (25-40) % [place] % (Auto) (3-14) % Eos % (Auto) (2-4) % Baso % (Auto) (0-2) % Neut # (Auto) (0204-0872) /uL Lymph # (Auto) (1164-3002) /uL [place] # (Auto) (0-900) /uL Eos # (Auto) (0-450) /uL Baso # (Auto) (0-100) /uL Sodium 136 L (137-145) mmol/L Potassium 3.8 (3.4-5.1) mmol/L Chloride 104 (98-107) mmol/L Carbon Dioxide 22 (22-32) mmol/L BUN 10 (7-17) mg/dL Creatinine 0.45 L (0.52-1.04) mg/dL Estimated GFR > 60 (>60) mL/min BUN/Creatinine Ratio 22.2 H (6-22) Glucose 132 H (70-100) mg/dL Lactate 2.5 H (0.7-2.1) mmol/L Calcium 8.5 (8.4-10.2) mg/dL Total Bilirubin 1.3 (0.2-1.3) mg/dL AST 30 (14-36) IU/L ALT 24 (<35) IU/L Alkaline Phosphatase 82 (38-126) U/L Total Protein 7.2 (6.3-8.2) g/dL Albumin 4.2 (3.5-5.0) g/dL Globulin 3.0 (1.7-4.1) g/dL Albumin/Globulin Ratio 1.4 (1.0-2.8) Lipase 129 (23-300) U/L Point of care testing: Point of Care Testing Test Results Negative Urine Dip Bedside Urine Glucose Negative Bedside Urine Bilirubin - Negative Bedside Urine Ketone +/- 5 Urine Specific [place] 1.01 Bedside Urine Occult Blood - Negative Bedside Urine pH 7.5 Bedside Urine Protein - Negative Bedside Urine Urobilinogen - Negative Bedside Urine Nitrite - Negative Bedside Urine Leukocytes - Negative Esterase Imaging Data CT scan - abdomen/pelvis: Radiologist's Impression: No acute intra-abdominal abnormality US - abdomen: Radiologist's Impression: Normal abdominal ultrasound MDM Narrative Medical decision making narrative: 57-year-old female presents with her in the chief complaint of upper abdominal pain with radiation around to her back over the course of the day with frequent episodes of nausea and vomiting. She had surgery for removal of right inguinal mesh at [facility] 2 weeks ago as it had been causing her increasing pain in her right lower quadrant over the past 9 years. Her symptoms are greatly improved in the aftermath of the surgery and she had no issues at her 1 week follow-up. She states these symptoms are different than those which led to her recent surgery. Pain seems to be a bit improved but she has persistent vomiting and is unable to tolerate orals despite our best efforts with the medications listed above. Labs are unremarkable and a 2nd metabolic profile and lipase were ordered given her ongoing symptoms. CT and ultrasound are both reassuring and showed no surgical abnormalities. Given her intractable vomiting patient will require hospitalization for stabilization and ongoing evaluation. Given the extent our workup with reassuring findings and no evidence of a surgical diagnosis there is no indication for surgical involvement at this time. Hospitalist will see patient at the bedside and write orders. Patient understands and agrees with the diagnosis and plan Discharge Plan Departure Patient Disposition: Admitted as Observation Admit Date/Time: 06/29/22 03:24 Admit Provider: Eduar Garner
[2022-06-29] VITALS (19 sets, daily range): BP systolic 117–152; BP diastolic 59–81; PULSE 68–85; RESP 10–39; O2SAT 95–100
--- NOTE | 2022-06-29 01:27 | DI.US.S_ITS ---
PROCEDURE: US ABDOMEN LIMITED INDICATIONS: SEVERE EPIGASTRIC PAIN TECHNIQUE: Real-time scanning was performed of the abdominal and retroperitoneal organs, with image documentation. COMPARISON: [facility], US, US ABDOMEN LIMITED, 01/02/2022. [facility], US, US ABDOMEN LIMITED, 10/04/2020. [facility], CT, CT ABDOMEN PELVIS W CON, 06/28/2022, 23:17. FINDINGS: Liver: Liver is normal in size and homogeneous in echotexture. Gallbladder: No gallstones. No gallbladder wall thickening, pericholecystic fluid or sonographic Wayne's sign. Biliary ducts: Intrahepatic bile ducts are non-dilated. Extrahepatic bile duct caliber measures 4.0 mm. Normal is 6-7 mm or less in diameter, or 10 mm or less post-cholecystectomy. Pancreas: Visualized portions of the pancreas are sonographically normal. Miscellaneous: No free abdominal fluid. IMPRESSION: Normal right upper quadrant ultrasound exam. No significant discrepancy with the managing attorney radiology preliminary report. Dictated by: Pamela Aldridge M.D. on 06/29/2022 at 8:18 Approved by: Pamela Aldridge M.D. on 06/29/2022 at 8:20
[2022-06-29 02:11] LABS: Lactate (Lactic Acid) 2.7 mmol/L (0.7-2.1)
[2022-06-29 02:44] LABS: Alanine Aminotransferase 24 IU/L (<35); Albumin 4.2 g/dL (3.5-5.0); Albumin Globulin Ratio 1.4 (1.0-2.8); Alkaline Phosphatase 82 U/L (38-126); Aspartate Aminotransferase 30 IU/L (14-36); BUN Creatinine Ratio 22.2 (6-22); Bilirubin Total 1.3 mg/dL (0.2-1.3); Blood Urea Nitrogen 10 mg/dL (7-17); Calcium 8.5 mg/dL (8.4-10.2); Carbon Dioxide 22 mmol/L (22-32); Chloride 104 mmol/L (98-107); Estimated Glomerular Filt Rate > 60 mL/min (>60); Glucose 132 mg/dL (70-100); HEMOLYSIS < 15 (0-50); Lipase 129 U/L (23-300); Potassium 3.8 mmol/L (3.4-5.1); Sodium 136 mmol/L (137-145); Total Protein 7.2 g/dL (6.3-8.2)
[2022-06-29 02:55] LABS: Lactate (Lactic Acid) 2.5 mmol/L (0.7-2.1)
--- NOTE | 2022-06-29 04:12 | PM.HP.1 ---
History of Present Illness History of Present Illness Date Patient Seen: 06/29/22 Time Patient Seen: 04:00 Chief complaint: Abd pain nv Narrative: Ms. Molina is a 57W with PMH migraines, endometriosis who presents to the hospital with abdominal pain. She has had laparoscopy two weeks ago at [facility] for right lower quadrant abdominal pain that had occurred for several years which reportedly began after placement of mesh in right lower abdomen after hernia repair. She had take down of adhesions and mesh removed in the OR. She also has history of endometriosis with history of hysterectromy and bilateral salpingo-ooopherectomy. Her recent surgery noted no endometroiosis. She felt well after the surgery until a few days ago when she started having abdominal pain. She notes bilateral flank pain, epigastric pain, and lower abdominal pain. She has nausea and vomiting. No diarrhea. No fevers/chills. She has noted she has light and sound sensitivity, no headaches. In the ED workup was done, vitals notable for afebrile, heart rate in the 70s, blood pressure 170s/70s, o2 sats 97%. Labs reviewed by me and notable for WBC 14, hgb 14.8. Creatinine 0.45. LFTs normal. Lactate 2.7->2.5. UA negative. CT abdomen reviewed by me and notable for no acute process. She was given pain medications, zofran, ativan and continued to have abdominal pain and vomiting and and nausea and was admitted for further treatment. [facility] Medical History Migraine Social History household members: spouse Smoking Status: Former smoker alcohol intake: current Meds Home Medications and Allergies Home Medications Medication Instructions Recorded Confirmed Type amitriptyline 25 mg tablet 25 mg PO BEDTIME 10/04/20 02/27/22 History estradiol 0.05 mg/24 hr semiweekly 1 patch transdermal 2XW 10/04/20 02/27/22 History transdermal patch omeprazole 20 mg capsule,delayed 20 mg PO QAM 10/04/20 02/27/22 History release rizatriptan 10 mg disintegrating 10 mg PO ONCE PRN Migraine Headache 10/04/20 02/27/22 History tablet (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) albuterol 90 mcg/actuation aerosol 90 mcg inhalation 1-2XD PRN 02/27/22 02/27/22 History inhaler Shortness Of Breath Allergies Allergy/AdvReac Type Severity Reaction Status Date / Time metoclopramide [From Reglan] Allergy Mild Agitated Verified 06/28/22 22:24 prochlorperazine Allergy Mild Agitated Verified 06/28/22 22:24 [From Compazine] Opioids - Morphine Analogues AdvReac Mild Nausea Verified 06/28/22 22:24 Review of Systems Review of Systems Narrative: 14 systems reviewed and negative aside from what is noted in HPI Exam Vital Signs (past 8 hours): - 06/28/22 22:18 06/29/22 00:24 06/29/22 00:26 Temperature 98 F Pulse Rate 76 70 Respiratory Rate 20 18 Blood Pressure 178/77 H 132/64 Pulse Oximetry 97 99 Oxygen Delivery Method Room Air 06/29/22 00:26 06/29/22 00:30 06/29/22 00:30 Temperature Pulse Rate 76 70 Respiratory Rate 12 Blood Pressure 135/63 Pulse Oximetry 97 96 Oxygen Delivery Method 06/29/22 01:00 06/29/22 01:00 06/29/22 01:30 Temperature Pulse Rate 84 Respiratory Rate Blood Pressure 128/79 134/61 Pulse Oximetry 98 Oxygen Delivery Method 06/29/22 01:30 06/29/22 02:00 06/29/22 02:00 Temperature Pulse Rate 72 80 Respiratory Rate 24 18 Blood Pressure 140/81 Pulse Oximetry 98 96 Oxygen Delivery Method Oxygen Delivery Method Room Air Narrative Exam Narrative: GEN: appears uncomfortable HEENT: moist mucous membranes, PERRL NECK: trachea midline, no JVD PULM: clear bilaterally, no wheezes, rhonchi, rales CV: regular rate and rhythm, no murmurs ABD: soft, diffuse tenderness, normal bowel sounds, no organomegaly EXT: warm and well perfused, with no edema NEURO: awake, alert, oriented, with no focal deficits Objective Labs 06/28/22 22:35 06/29/22 02:00 Labs: Laboratory Results - last 24 hr 06/28/22 06/28/22 06/28/22 22:35 22:35 22:35 WBC 14.0 H RBC 5.01 Hgb 14.8 Hct 42.9 MCV 85.6 MCH 29.5 MCHC 34.4 RDW 12.4 Plt Count 389 Neut % (Auto) 78.6 H Lymph % (Auto) 14.9 L [place] % (Auto) 4.7 Eos % (Auto) 1.2 L Baso % (Auto) 0.6 Neut # (Auto) 95660 H Lymph # (Auto) 2100 [place] # (Auto) 700 Eos # (Auto) 200 Baso # (Auto) 100 Sodium 135 L Potassium 3.5 Chloride 101 Carbon Dioxide 24 BUN 14 Creatinine 0.58 Estimated GFR > 60 BUN/Creatinine Ratio 24.1 H Glucose 125 H Lactate 2.7 H Calcium 9.4 Total Bilirubin 1.2 AST 20 ALT 23 Alkaline Phosphatase 92 Total Protein 7.4 Albumin 4.4 Globulin 3.0 Albumin/Globulin Ratio 1.5 Lipase 191 06/29/22 06/29/22 02:00 02:00 WBC RBC Hgb Hct MCV MCH MCHC RDW Plt Count Neut % (Auto) Lymph % (Auto) [place] % (Auto) Eos % (Auto) Baso % (Auto) Neut # (Auto) Lymph # (Auto) [place] # (Auto) Eos # (Auto) Baso # (Auto) Sodium 136 L Potassium 3.8 Chloride 104 Carbon Dioxide 22 BUN 10 Creatinine 0.45 L Estimated GFR > 60 BUN/Creatinine Ratio 22.2 H Glucose 132 H Lactate 2.5 H Calcium 8.5 Total Bilirubin 1.3 AST 30 ALT 24 Alkaline Phosphatase 82 Total Protein 7.2 Albumin 4.2 Globulin 3.0 Albumin/Globulin Ratio 1.4 Lipase 129 Assessment & Plan Assessment & Plan narrative: 1. Abdominal pain -etiology not clear -labs notable for leukocytosis and elevated lactate -no diarrhea so less likely gastroenteritis -CT abdomen with no acute process and no evidence of infection or hernia ---there is a small 0.2 nonobstructing kidney stone, but pain is not consistent with this location and doubt this is causing symptoms -with generalized abdominal pain, light sensitivity and sound sensitivity have some suspicion for abdominal migraine -will order sumatriptan and toradol for symptom relief, continue protonix -if pain remains poorly controlled consider CT angio to further evaluate vessels -no indication to start antibiotics at this point 2. History of migraines -continue amitryptiline once able to tolerate oral medications I have discussed plan and obtained history from the patient. I have discussed plan of care with ED physician and bedside nurse. I have reviewed labs, CT abdomen and previous medical records. CODE: Full Proxy: Kelli Molina, spouse [facility] - Meds 'Current medications' to include all prescriptions, [id number] products, herbals, cannabis/cannabidiol products, and vitamin/mineral/dietary (nutritional) supplements. I have utilized all available resources to obtain, update, or review the patient?s current medications. [If Yes, STOP here]: Yes
[2022-06-29] MEDS: LACTATED RINGERS 1,000 ML 100 ML IV (04:16)
[2022-06-29] MEDS: SUMAtriptan 6 MG/0.5 ML VIAL SUBCUT (04:16)
[2022-06-29 04:46] LABS: Reflexed Lactate in 2 Hours Y
[2022-06-29 04:47] LABS: COVID19 -Nasal RAPID Negative (Negative)
[2022-06-29 07:48] LABS: Lactate (Lactic Acid) 1.5 mmol/L (0.7-2.1)
--- NOTE | 2022-06-29 09:01 | P.DS_ITS ---
History of Present Illness History of Present Illness Date Patient Seen: 06/29/22 Time Patient Seen: 08:30 Chief complaint: Abd pain nv Narrative: Per admitting provider, Ms. Molina is a 57W with PMH migraines, endometriosis who presents to the hospital with abdominal pain. She has had laparoscopy two weeks ago at [facility] for right lower quadrant abdominal pain that had occurred for several years which reportedly began after placement of mesh in right lower abdomen after hernia repair. She had take down of adhesions and mesh removed in the OR. She also has history of endometriosis with history of hysterectromy and bilateral sa lpingo-ooopherectomy. Her recent surgery noted no endometroiosis. She felt well after the surgery until a few days ago when she started having abdominal pain. She notes bilateral flank pain, epigastric pain, and lower abdominal pain. She has nausea and vomiting. No diarrhea. No fevers/chills. She has noted she has light and sound sensitivity, no headaches. In the ED workup was done, vitals notable for afebrile, heart rate in the 70s, blood pressure 170s/70s, o2 sats 97%. Labs reviewed by me and notable for WBC 14, hgb 14.8. Creatinine 0.45. LFTs normal. Lactate 2.7->2.5. UA negative. CT abdomen reviewed by me and notable for no acute process. She was given pain medications, zofran, ativan and continued to have abdominal pain and vomiting and and nausea and was admitted for further treatment. Discharge Providers Provider Date of admission: 06/29/22 03:24 Discharge Date: 06/29/22 Primary care physician: Ping Thomas DO Discharge provider: Lawrence Garcia DO Summary Hospital Course Discharge Diagnosis: 1. Abdominal migraine, generalized abdominal pain with nausea and vomiting. 2. History of migraines Hospital Course: Ms. Molina is a 57W with PMH migraines, endometriosis who presents to the [facility] with abdominal pain after recent surgery for removal of hernia mesh for abdominal pain. CT showed no acute pathologies and there were no significant infectious etiologies found. There was a tiny kidney stone but history is not consistent with nephrolithiasis. Patient improved with pain medications, time, and was given a triptan for possible abdominal migraine with improvement. Etiology is not entirely clear at the time of discharge, with presumptive diagnosis of abdominal migraine given after therapies she was able to tolerate a diet with minimal pain. She was given a prescription for ketoroloac which also helped her discomfort. Outpatient follow up with PCP is recommended if symptoms recur. Time Spent with Patient Time spent: Less than 30 minutes Exam Vital Signs (past 8 hours): - 06/29/22 01:30 06/29/22 01:30 06/29/22 02:00 Pulse Rate 72 Respiratory Rate 24 Blood Pressure 134/61 140/81 Pulse Oximetry 98 Oxygen Delivery Method 06/29/22 02:00 06/29/22 02:30 06/29/22 02:30 Pulse Rate 80 76 Respiratory Rate 18 14 Blood Pressure 117/69 Pulse Oximetry 96 99 Oxygen Delivery Method 06/29/22 03:00 06/29/22 03:00 06/29/22 03:36 Pulse Rate 68 80 Respiratory Rate 12 39 H Blood Pressure 122/66 Pulse Oximetry 100 97 Oxygen Delivery Method 06/29/22 04:00 06/29/22 04:30 06/29/22 05:00 Pulse Rate 68 72 69 Respiratory Rate 18 17 20 Blood Pressure Pulse Oximetry 95 97 97 Oxygen Delivery Method 06/29/22 05:37 06/29/22 06:00 06/29/22 06:30 Pulse Rate 74 74 80 Respiratory Rate 14 10 L 13 Blood Pressure 122/66 Pulse Oximetry 96 95 97 Oxygen Delivery Method 06/29/22 07:18 06/29/22 07:19 06/29/22 07:19 Pulse Rate 85 83 Respiratory Rate 21 20 Blood Pressure 147/72 H Pulse Oximetry 96 Oxygen Delivery Method Room Air 06/29/22 07:30 06/29/22 07:30 Pulse Rate 82 Respiratory Rate 18 Blood Pressure 152/59 H Pulse Oximetry 97 Oxygen Delivery Method Oxygen Delivery Method Room Air Narrative Exam Narrative: GEN: No acute distress, ambulatory in ER room. EXT: warm and well perfused, with no edema NEURO: awake, alert, oriented, with no focal deficits Objective Labs 06/28/22 22:35 06/29/22 02:00 Labs: Laboratory Results - last 24 hr 06/28/22 06/28/22 06/28/22 22:35 22:35 22:35 WBC 14.0 H RBC 5.01 Hgb 14.8 Hct 42.9 MCV 85.6 MCH 29.5 MCHC 34.4 RDW 12.4 Plt Count 389 Neut % (Auto) 78.6 H Lymph % (Auto) 14.9 L Desha % (Auto) 4.7 Eos % (Auto) 1.2 L Baso % (Auto) 0.6 Neut # (Auto) 12993 H Lymph # (Auto) 2100 Desha # (Auto) 700 Eos # (Auto) 200 Baso # (Auto) 100 Sodium 135 L Potassium 3.5 Chloride 101 Carbon Dioxide 24 BUN 14 Creatinine 0.58 Estimated GFR > 60 BUN/Creatinine Ratio 24.1 H Glucose 125 H Lactate 2.7 H Calcium 9.4 Total Bilirubin 1.2 AST 20 ALT 23 Alkaline Phosphatase 92 Total Protein 7.4 Albumin 4.4 Globulin 3.0 Albumin/Globulin Ratio 1.5 Lipase 191 SARS-CoV-2 (PCR) 06/29/22 06/29/22 06/29/22 02:00 02:00 04:20 WBC RBC Hgb Hct MCV MCH MCHC RDW Plt Count Neut % (Auto) Lymph % (Auto) Desha % (Auto) Eos % (Auto) Baso % (Auto) Neut # (Auto) Lymph # (Auto) Desha # (Auto) Eos # (Auto) Baso # (Auto) Sodium 136 L Potassium 3.8 Chloride 104 Carbon Dioxide 22 BUN 10 Creatinine 0.45 L Estimated GFR > 60 BUN/Creatinine Ratio 22.2 H Glucose 132 H Lactate 2.5 H Calcium 8.5 Total Bilirubin 1.3 AST 30 ALT 24 Alkaline Phosphatase 82 Total Protein 7.2 Albumin 4.2 Globulin 3.0 Albumin/Globulin Ratio 1.4 Lipase 129 SARS-CoV-2 (PCR) Negative 06/29/22 07:22 WBC RBC Hgb Hct MCV MCH MCHC RDW Plt Count Neut % (Auto) Lymph % (Auto) Desha % (Auto) Eos % (Auto) Baso % (Auto) Neut # (Auto) Lymph # (Auto) Desha # (Auto) Eos # (Auto) Baso # (Auto) Sodium Potassium Chloride Carbon Dioxide BUN Creatinine Estimated GFR BUN/Creatinine Ratio Glucose Lactate 1.5 Calcium Total Bilirubin AST ALT Alkaline Phosphatase Total Protein Albumin Globulin Albumin/Globulin Ratio Lipase SARS-CoV-2 (PCR) [facility] Medical History Migraine Social History household members: spouse Smoking Status: Former smoker alcohol intake: current Discharge Plan Discharge Plan Patient Disposition: Home Provider Discharge Comment: You were admitted to the hospital with abdominal pain, probably due to abdominal migraine but not entirely clear. If symptoms recur, recommend trial of your triptan medication, but if pain is still severe return to the ER for further evaluation. Discharge orders & Medications Prescriptions: New ketorolac 10 mg tablet 10 mg PO Q8H PRN (Reason: pain) 10 Days Qty: 20 0RF Continued omeprazole 20 mg capsule,delayed release(DR/EC) 20 mg PO QAM estradiol 0.05 mg/24 hr patch semiweekly 1 patch transdermal 2XW Patient Comments: patch in place Rx Instructions: apply 1 patch for 3 days alternating with 1 patch for 4 days each week for 3 wks per 4-wk cycle amitriptyline 25 mg tablet 25 mg PO BEDTIME rizatriptan [Maxalt-[employer]] 10 mg tablet,disintegrating 10 mg PO ONCE PRN (Reason: Migraine Headache) Rx Instructions: may repeat once after at least 2 hours albuterol 90 mcg/actuation Aerosol 90 mcg INHALATION 1-2XD PRN (Reason: Shortness Of Breath) Follow up/Referrals: Ping Thomas, [Primary Care Provider] - Diet/Activity/Treatments Diet: Diet as Tolerated Activity: As tolerated Visit Report/Discharge Packet Stand Alone Forms: Patient Portal/API, Stroke Signs & Symptoms Discharge Data Primary Care Provider: Ping Thomas Attending Provider: Eduar Garner Admit Date/Time: 06/29/22 03:24 Discharges patient from system. Discharge Date/Time: 06/29/22 10:00
--- NOTE | 2022-06-29 12:25 | PC.NURSE ---
Dr Ng did not enter clinical impression. i spoke with Dr Garcia for admitting dx. He said her dx was abdominal migraine
== END 2022-06-29 10:00 | disposition home or self-care (01) ==
LOC: ED 06-29 02:20 → AC 06-29 03:25
PROVIDERS: Admitting Provider Internal Medicine; Emergency Provider Emergency Medicine; PCP Student in an Organized Health Care Education/Training Program; Referring Provider Emergency Medicine; Visit Provider Internal Medicine
DX: R10.13 Epigastric pain (principal); R11.2 Nausea with vomiting, unspecified; G43.809 Other migraine, not intractable, without status migrainosus; Z98.890 Other specified postprocedural states; Z20.822 Contact with and (suspected) exposure to COVID-19
CPT/HCPCS: 36415; 74177; 76705; 80053; 81003; 81025; 83605; 83690; 85025; 87635; 96361; 96374; 96375; 99284; C9803; G0378; C9113; J1170; J2405; J3030; Q9967

== ENCOUNTER → 2022-09-04 12:37 | Outpatient (CLI) | payer BC, SELFPAY ==
--- NOTE | 2022-09-04 12:38 | DI.RAD.S_ITS ---
PROCEDURE: XR WRIST LT MIN 3V INDICATIONS: Wrist injury TECHNIQUE: For views of the wrist were acquired. COMPARISON: None. FINDINGS: Bones: There is a nondisplaced right 5th metacarpal distal shaft/neck fracture. No suspicious bony lesions. There is osteopenia. Scaphoid view: Scaphoid is intact. Soft tissues: No suspicious soft tissue calcifications. IMPRESSION: 1. Nondisplaced right 5th metacarpal distal shaft/neck fracture. Dictated by: Pamela Aldridge M.D. on 09/04/2022 at 14:14 Approved by: Pamela Aldridge M.D. on 09/04/2022 at 14:16
--- NOTE | 2022-09-04 12:38 | DI.RAD.S_ITS ---
PROCEDURE: XR HAND LT MIN 3V INDICATIONS: Wrist injury TECHNIQUE: 3 views of the hand(s) acquired. COMPARISON: None. FINDINGS: Bones: There is a nondisplaced oblique fracture in the distal 5th metacarpal shaft. Carpal bones are normally aligned. No suspicious bony lesions. There is osteopenia. Soft tissues: No suspicious soft tissue calcifications. IMPRESSION: Oblique fracture of the 5th metacarpal. Dictated by: Pamela Aldridge M.D. on 09/04/2022 at 14:13 Approved by: Pamela Aldridge M.D. on 09/04/2022 at 14:14
== END ==
PROVIDERS: PCP Student in an Organized Health Care Education/Training Program; Referring Provider Student in an Organized Health Care Education/Training Program; Visit Provider Student in an Organized Health Care Education/Training Program
DX: S62.367A Nondisplaced fracture of neck of fifth metacarpal bone, left hand, initial encounter for closed fracture (principal); M25.539 Pain in unspecified wrist; M79.643 Pain in unspecified hand; X58.XXXA Exposure to other specified factors, initial encounter
CPT/HCPCS: 73110; 73130

== ENCOUNTER → 2023-08-10 14:23 | Outpatient (CLI) | payer BC, SELFPAY ==
--- NOTE | 2023-08-10 14:24 | DI.CT.S_ITS ---
PROCEDURE: CT ABDOMEN PELVIS W CON INDICATIONS: LOWER ABDOMINAL PAIN TECHNIQUE: After the administration of intravenous contrast, axial sections acquired from the lung bases to the pubic symphysis. Coronal and sagittal reformats were performed. For radiation dose reduction, the following was used: automated exposure control, adjustment of mA and/or kV according to patient size. COMPARISON: [facility], CT, CT ABDOMEN PELVIS W CON, 06/28/2022, 23:17. FINDINGS: Image quality: Excellent Localizer image: 3.7 cm airspace opacity in the right lower lung, partially visualized on axial CT images, concerning for consolidation versus soft tissue mass. Lower chest: Please see above. Mild hepatic steatosis. The main portal vein is patent. The gallbladder, pancreas, spleen, are unremarkable. Mild thickening of the left adrenal gland, unchanged from prior exam. The right adrenal gland is unremarkable. Right kidney: Multiple sub cm hypo enhancing lesion, too small to be characterized but statistically likely to represent renal cysts. No hydronephrosis or renal stone. Left kidney: Punctate nonobstructive left renal stone. No left hydronephrosis. Small subcentimeter hypoenhancing lesion, too small to be characterized. The bladder is unremarkable. Status post hysterectomy. No adnexal masses. GI: Colonic diverticulosis, most pronounced and severe in the proximal and mid sigmoid colon. No diverticulitis. The appendix is not visualized. No bowel obstruction or bowel wall thickening. Abdominal aorta: Normal No abdominal or pelvic lymphadenopathy. Body wall: There is a single surgical clip in the right anterior peritoneum, immediately abutting the right lower abdominal wall musculature, unchanged from prior exam (series 2, image 57). Bones: Unremarkable IMPRESSION: 1. 3.7 cm airspace opacity in the right lower lung on localizer image, with only a small portion seen on the axial CT images, raising concern for either consolidation versus lung mass. Recommend further evaluation with CT chest . 2. Single surgical clip in the right anterior peritoneum, abutting the right anterior lower abdominal wall musculature, unchanged from prior exam. Dictated by: Anna Mtz M.D. on 08/10/2023 at 17:36 Approved by: Anna Mtz M.D. on 08/10/2023 at 17:52
== END ==
PROVIDERS: PCP Student in an Organized Health Care Education/Training Program; Referring Provider Surgery; Visit Provider Surgery
DX: N20.0 Calculus of kidney (principal); K76.0 Fatty (change of) liver, not elsewhere classified; K57.30 Diverticulosis of large intestine without perforation or abscess without bleeding; R10.30 Lower abdominal pain, unspecified; S30.85 Superficial foreign body of abdomen, lower back, pelvis and external genitals; Z90.710 Acquired absence of both cervix and uterus
CPT/HCPCS: 74177; Q9967